=== PATIENT | female | born 1970 | race Caucasian/White ===

== ENCOUNTER 2017-07-27 08:43 | Day surgery (SDC) | payer BC ==
[2017-07-27] MEDS ORDERED: Ondansetron 4 MG/2 ML SDV IV ONE (08:44)
[2017-07-27] MEDS ORDERED: Ketorolac 30 MG/ML SDV IVPUSH ONE (08:44)
[2017-07-27] MEDS ORDERED: Propofol 200 MG/20 ML SDV IV ONE (08:44)
[2017-07-27] MEDS ORDERED: fentaNYL 100 MCG/2 ML SDV IV ONE (08:44)
[2017-07-27] MEDS ORDERED: Lidocaine 1% 30 ML SDV INJECT ONE ×2 (08:44→10:09)
[2017-07-27] MEDS ORDERED: Midazolam 1 MG/ML 2 ML SDV IV ONE (08:44)
[2017-07-27] MEDS ORDERED: Dexamethasone 4 MG/ML SDV IV ONE (08:44)
[2017-07-27] MEDS ORDERED: Lidocaine 1% 30 ML SDV ONE (09:26)
[2017-07-27] MEDS ORDERED: Lactated Ringers 1,000 ML IV SCH (09:30)
--- NOTE | 2017-07-27 11:28 | OR ---
DATE: 07/27/2017 PREOPERATIVE DIAGNOSIS: Right axillary abscess x2. POSTOPERATIVE DIAGNOSIS: Right axillary abscess x2. PROCEDURES: Incision and drainage with packing of axillary abscess x2. ANESTHESIA: Local plus MAC. SPECIMEN: Cultures. INDICATION FOR PROCEDURE: This 47-year-old female has 2 large abscesses in the axilla on the right side. 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 This larger one measures about sent 2 to 3 cm in diameter. PROCEDURE IN DETAIL: After adequate preparation, local anesthesia was used to infiltrate the skin area over each one of these abscess areas. An incision was made and carried down into the abscess cavity which drained more or less a clear fluid type instead of a purulent thick pus. Suction was used to break up any of the loculations, and a 2 x 2 was used to pack the anterior larger abscess, and a half-inch gauze to pack the smaller posterior abscess. These will be removed in 2 days. The patient was taken to recovery room. [facility] /[id number]
--- NOTE | 2017-07-28 08:12 | CT ---
CLINICAL HISTORY: 47-year-old 140 pound female noted 28 December 2016 to have "multicystic mass right lo wer quadrant immediately adjacent to the cecum" that was not confirmed on subsequent MRI of the pelvi s 11 July 2017. Reevaluate please. Mucocele of the appendix? Cystic ovary? SCAN TECHNIQUE: Volume acquisition of data from the abdomen and pelvis after oral ingestion 2 bottles Redicat barium but without IV contrast obtained while the patient was lying supine on the Siemens ltislice CT scanner [place], [place]. All data archived in the PACS sy stem for storage, reformatting and study. INTERPRETATION: 1. *Right lower quadrant "mass" not reproduced on today's follow-up exam but there is some irregulari ty lower margin of the cecum and suggest considering colonoscopy if that has not been performed. Appe ndix suggested but not definitive. 2. Gallbladder, unenhanced liver, spleen, pancreas and adrenal glands unremarkable. 3. Several phlebolith-like radiopacities in the lower right pelvis. No sign of nephrolithiasis or obs tructive uropathy. Symmetrically distended normal appearing urinary bladder. 4. No pelvic or abdominal mass lesion, retroperitoneal lymphadenopathy, signs of mechanical bowel obs truction, ascites or free intraperitoneal air. 5. Patchy atelectasis but lung bases otherwise clear. Normal cardiac silhouette.
== END 2017-07-27 14:33 | disposition home or self-care (01) ==
LOC: DL.SDS 08:43 → EDSTATUS 11:00 → DL.SDS 14:33
PROVIDERS: ATTEND Surgery
DX: L02.411 Cutaneous abscess of right axilla (principal); J44.9 Chronic obstructive pulmonary disease, unspecified; K21.9 Gastro-esophageal reflux disease without esophagitis; Z88.8 Allergy status to other drugs, medicaments and biological substances; Z90.710 Acquired absence of both cervix and uterus; Z98.890 Other specified postprocedural states; Z98.51 Tubal ligation status; K59.09 Other constipation
CPT/HCPCS: 10061; 87070; 87075; J7120; 74176; 87077; 87186; J1100; J1885; J2250; J2405; J2704; J3010

== ENCOUNTER 2017-09-21 06:53 | Day surgery (SDC) | payer BC ==
[2017-09-21] MEDS ORDERED: Rocuronium 50 MG/5 ML Vial IV ONE (06:54)
[2017-09-21] MEDS ORDERED: Dexamethasone 4 MG/ML SDV IV ONE (06:54)
[2017-09-21] MEDS ORDERED: Ondansetron 4 MG/2 ML SDV IV ONE (06:54)
[2017-09-21] MEDS ORDERED: Ketorolac 30 MG/ML SDV IVPUSH ONE (06:54)
[2017-09-21] MEDS ORDERED: Glycopyrrolate 0.2 MG/ML 2 ML SDV IV ONE (06:54)
[2017-09-21] MEDS ORDERED: fentaNYL 100 MCG/2 ML SDV IV ONE (06:54)
[2017-09-21] MEDS ORDERED: Neostigmine Methylsulfate 10 MG/10 ML MDV IV ONE (06:54)
[2017-09-21] MEDS ORDERED: Midazolam 1 MG/ML 2 ML SDV IV ONE (06:54)
[2017-09-21] MEDS ORDERED: Propofol 200 MG/20 ML SDV IV ONE (06:54)
[2017-09-21] MEDS ORDERED: Metoclopramide 10 MG/2 ML SDV IV ONE (06:54)
[2017-09-21] MEDS ORDERED: Sodium Chloride 0.9% 10 ML Syringe IV PRN (07:27)
[2017-09-21] MEDS ORDERED: Lactated Ringers 1,000 ML IV SCH (07:30)
--- NOTE | 2017-09-21 19:27 | OR ---
DATE: 09/21/2017 PREOPERATIVE DIAGNOSIS: Chronic right lower quadrant abdominal pain. POSTOPERATIVE DIAGNOSIS: Chronic right lower quadrant abdominal pain. PROCEDURE: Diagnostic laparoscopy with incidental appendectomy. ANESTHESIA: General. SPECIMEN: Normal appendix. OPERATIVE FINDINGS: She has some moderate size cyst on a retained right ovary; otherwise, the examination is completely normal. INDICATION FOR PROCEDURE: This 47-year-old female has chronic right lower quadrant pain. I have been seeing her off and on for the last several months. CT scan initially showed a possible right lower quadrant or pelvic abscess after her hysterectomy; however, on followup that seem to be disappearing. There was a questionable area, however, located next to the appendix that was abnormal on CT scan; however, the colonoscopy was normal. I had recommended diagnostic laparoscopy to look at this. PROCEDURE IN DETAIL: After adequate preparation, trocars were placed under direct vision. The abdomen was insufflated. Examination did not show any adhesions at all from any prior surgeries. Liver appeared to be soft and normal. Gallbladder is zhen-egg blue, thin, pliable, no evidence of acute inflammation. The intestines appeared to be normal. There is no evidence of Crohn disease. The appendix coming off the cecum appears to be normal in length and not acutely inflamed. There were no associated masses. The ileocecal valve and terminal ilium are all normal. There is no evidence of Meckel diverticulum or mesenteric adenitis. The pelvic examination shows an absent uterus in left ovary. The right ovary does have some cyst, these were slightly unroofed to drain them today, but these certainly will recur. The ovary otherwise was left intact. No abnormalities of the sigmoid colon down in the pelvis were noted. The stomach and spleen appears to be normal. The stapling device was used to transect the mesentery appendix, and then the appendix off the cecum. This was done in an incidental fashion. I had discussed this procedure with the patient preoperatively. The abdomen was then desufflated, and the skin closed with Monocryl. [facility] /[id number]
== END 2017-09-21 14:45 | disposition home or self-care (01) ==
LOC: DL.SDS 06:53
PROVIDERS: ATTEND Surgery
DX: N83.201 Unspecified ovarian cyst, right side (principal); G89.29 Other chronic pain; R10.31 Right lower quadrant pain; Z88.8 Allergy status to other drugs, medicaments and biological substances
CPT/HCPCS: 44970; J1100; J1885; J2250; J2405; J2704; J2710; J2765; J3010; J7120; J3490